=== PATIENT | male | born 1955 | race Caucasian/White ===

== ENCOUNTER 2020-12-16 15:15 | Emergency (ER) | payer MEDICAID | END 2020-12-16 15:20 | disposition left against medical advice (07) | LOC: ED 15:15 → LWOBS 15:20 | DX: Z91.19 Patient's noncompliance with other medical treatment and regimen (principal) ==

== ENCOUNTER 2020-12-18 13:08 | Emergency (ER) | payer SELFPAY ==
[~2020-12-18] VITALS: Ht 172.7 cm; Wt 75.0 kg
[2020-12-18 15:00] VITALS: BP 127/73
[2020-12-19] MEDS ORDERED: FLEXERIL5 M1 PO (05:21)
[2020-12-19] MEDS ORDERED: ULTRAM50 MG PO (05:21)
== END 2020-12-18 15:05 | disposition home or self-care (01) | DRG 552 ==
LOC: ED 13:08
DX: M54.41 Lumbago with sciatica, right side (principal); E11.9 Type 2 diabetes mellitus without complications; I10 Essential (primary) hypertension

== ENCOUNTER 2020-12-19 04:51 | Emergency (ER) | payer SELFPAY ==
[~2020-12-19] VITALS: Ht 172.7 cm; Wt 70.0 kg
[2020-12-19] MEDS ORDERED: FLEXERIL5 M1 PO (05:21)
[2020-12-19] MEDS ORDERED: ULTRAM50 MG PO (05:21)
[2020-12-19 06:00] VITALS: BP 130/68
== END 2020-12-19 06:00 | disposition home or self-care (01) | DRG 552 ==
LOC: ED 04:51
DX: M51.17 Intervertebral disc disorders with radiculopathy, lumbosacral region (principal); E11.9 Type 2 diabetes mellitus without complications; I10 Essential (primary) hypertension

== ENCOUNTER 2020-12-24 17:00 | Emergency (ER) | payer SELFPAY ==
[~2020-12-24] VITALS: Ht 172.7 cm; Wt 69.5 kg
[~2020-12-24 17:00] MED LIST: FLEXERIL5 M1 PO; ULTRAM50 MG PO
[2020-12-24] MEDS ORDERED: LORTAB 5/3255 MG PO (19:50)
[2020-12-24 20:20] VITALS: BP 138/68
== END 2020-12-24 20:20 | disposition home or self-care (01) | DRG 552 ==
LOC: ED 17:00
DX: M54.31 Sciatica, right side (principal); E11.9 Type 2 diabetes mellitus without complications; I10 Essential (primary) hypertension

== ENCOUNTER 2020-12-28 12:51 | Emergency (ER) | payer SELFPAY ==
[~2020-12-28] VITALS: Ht 172.7 cm; Wt 66.0 kg
[~2020-12-28 12:51] MED LIST changes: +LORTAB 5/3255 MG PO
[2020-12-28] MEDS ORDERED: NAPROXEN500 MG PO (13:30)
[2020-12-28] MEDS ORDERED: CYCLOBENZAPRINE10 MG PO (13:30)
[2020-12-28 13:45] VITALS: BP 131/74
== END 2020-12-28 13:45 | disposition home or self-care (01) | DRG 552 ==
LOC: ED 12:51
DX: M54.41 Lumbago with sciatica, right side (principal); I10 Essential (primary) hypertension; E11.9 Type 2 diabetes mellitus without complications